=== PATIENT | female | born 1995 | race Caucasian/White ===

== ENCOUNTER 2019-07-05 20:05 | Emergency (ER) | payer SELFPAY ==
--- NOTE | 2019-07-05 21:00 | ER Document Report ---
ED Medical Screen (RME) - General Chief Complaint: Dog Bite Stated Complaint: POSSIBLE DOG BITE Time Seen by Provider: 07/05/19 20:56 Mode of Arrival: Ambulatory Information source: Patient Notes: Patient presents to the emergency department with multiple dog bites to her left forearm and the right lower leg. Reports she was breaking up a fight between dogs. Reports her roommate's dog bit her. Reports rabies shots are up-to-date. Reports her tetanus is up-to-date. I have greeted and performed a rapid initial assessment of this patient. A comprehensive ED assessment and evaluation of the patient, analysis of test results and completion of the medical decision making process will be conducted by additional ED providers. Dictation of this chart was performed using voice recognition software; therefore, there may be some unintended grammatical errors. - Related Data Allergies/Adverse Reactions: No Known Allergies Allergy (Unverified 07/05/19 20:50) Physical Exam - Vital signs Vitals: Temp Pulse Resp BP Pulse Ox 98.1 F 81 18 114/67 100 07/05/19 20:21 07/05/19 20:21 07/05/19 20:21 07/05/19 20:21 07/05/19 20:21 Course - Vital Signs Vital signs: Temp Pulse Resp BP Pulse Ox 98.1 F 81 18 114/67 100 07/05/19 20:21 07/05/19 20:21 07/05/19 20:21 07/05/19 20:21 07/05/19 20:21
--- NOTE | 2019-07-05 22:06 | RADIOLOGY REPORT (SQ) ---
EXAM DESCRIPTION: XR TIBIA FIBULA 2 VIEWS COMPLETED DATE/TME: 07/05/2019 20:59 CLINICAL HISTORY: 24 years, Female, DOG BITE, COMPARISON: None. NUMBER OF VIEWS: 4 TECHNIQUE: 4 view right tibia fibula LIMITATIONS: None. FINDINGS: Negative for fracture or dislocation. Soft tissues are unremarkable. No radiopaque foreign body IMPRESSION: Negative exam copyright 2010 [employer]- All Rights Reserved
--- NOTE | 2019-07-05 22:07 | RADIOLOGY REPORT (SQ) ---
EXAM DESCRIPTION: XR FOREARM 2 VIEWS COMPLETED DATE/TME: 07/05/2019 20:59 CLINICAL HISTORY: 24 years, Female, DOG BITE, COMPARISON: EXAM DESCRIPTION: CLINICAL HISTORY: DOG BITE, COMPARISON: None FINDINGS: 2 view(s) submitted. No fracture or dislocation is identified. Bone marrow attenuation is unremarkable. No radiopaque foreign body is identified. IMPRESSION: No acute fracture or dislocation. NUMBER OF VIEWS: TECHNIQUE: LIMITATIONS: None. FINDINGS: IMPRESSION: copyright 2010 [employer]- All Rights Reserved
[2019-07-05] MEDS ORDERED: AMOXICILLIN TR/POT CLAVULANATE 500-125 MG TAB PO ONE (22:35)
[2019-07-05] MEDS ORDERED: IBUPROFEN 800 MG TABLET PO ONE (22:35)
--- NOTE | 2019-07-05 22:35 | ER Document Report ---
ED General - General Chief Complaint: Dog Bite Stated Complaint: POSSIBLE DOG BITE Time Seen by Provider: 07/05/19 20:56 Mode of Arrival: Ambulatory Information source: Patient Notes: 24-year-old female presents emergency department with multiple dog bites to her left forearm and right lower leg. Reports that she broke up a fight between dogs. Report it was her roommates dog that bit her. Reports rabies vaccines are up-to-date. Patient reports her tetanus is up-to-date. No active bleeding. TRAVEL OUTSIDE OF THE [place] IN LAST 30 DAYS: No - HPI Onset: Just prior to arrival Onset/Duration: Sudden Quality of pain: Achy Pain Level: 3 Associated symptoms: None Exacerbated by: Denies Relieved by: Denies Similar symptoms previously: No Recently seen / treated by doctor: No - Related Data Allergies/Adverse Reactions: No Known Allergies Allergy (Unverified 07/05/19 20:50) Past Medical History - General Information source: Patient Last Menstrual Period: May - Social History Smoking Status: Current Every Day Smoker Cigarette use (# per day): Yes Chew tobacco use (# tins/day): No Frequency of alcohol use: Social Drug Abuse: None Occupation: Unemployed Family History: None Patient has suicidal ideation: No Patient has homicidal ideation: No - Medical History Medical History: Negative Surgical Hx: Negative Review of Systems - Review of Systems Notes: Review HPI for review of systems., All other systems negative Physical Exam - Vital signs Vitals: Temp Pulse Resp BP Pulse Ox 98.1 F 81 18 114/67 100 07/05/19 20:21 07/05/19 20:21 07/05/19 20:21 07/05/19 20:21 07/05/19 20:21 - General General appearance: Alert, Anxious In distress: None - HEENT Head: Normocephalic Eyes: Normal Conjunctiva: Normal Extraocular movements intact: Yes Neck: Normal, Supple - Respiratory Respiratory status: No respiratory distress Chest status: Nontender Breath sounds: Normal Chest palpation: Normal - Cardiovascular Rhythm: Regular Heart sounds: Normal auscultation Murmur: No - Abdominal Inspection: Normal Tenderness: Nontender - Extremities General upper extremity: Normal color, Normal ROM, Normal strength General lower extremity: Normal color, Normal ROM, Normal strength - Neurological Neuro grossly intact: Yes Cognition: Normal Orientation: AAOx4 [place] Coma Scale Eye Opening: Spontaneous [place] Coma Scale Verbal: Oriented [place] Coma Scale Motor: Obeys Commands [place] Coma Scale Total: 15 Speech: Normal 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 Course - Re-evaluation Re-evalutation: 07/05/19 22:25 Patient presents to the emergency department with multiple bites to her left forearm and right lower leg. Reports she broke up a fight between dogs. Reports her roommate's dog bit her. Reports his previous vaccines are up-to-date. Patient reports her tetanus is up-to-date. Wound care ordered. X-rays negative for foreign body or fracture. pt wounds cleaned extremely well with ns/shur clens and surgical scub, steri strips placed on some bites. Pt instructed on s/s infection and medication. she was instructed to return to the ED for any s/s infection or concerns. she verbalized understanding to all information Forearm X-Ray 07/05/19 20:59 IMPRESSION: No acute fracture or dislocation. NUMBER OF VIEWS: TECHNIQUE: LIMITATIONS: None. FINDINGS: IMPRESSION: copyright 2010 [employer]- All Rights Reserved Tibia/Fibula X-Ray 07/05/19 20:59 IMPRESSION: Negative exam copyright 2010 [employer]- All Rights Reserved 07/05/19 22:42 07/06/19 02:19 - Vital Signs Vital signs: Temp Pulse Resp BP Pulse Ox 98.9 F 78 18 110/74 98 07/05/19 23:25 07/05/19 23:25 07/05/19 20:21 07/05/19 23:25 07/05/19 23:25 - Diagnostic Test Radiology reviewed: Image reviewed, Reports reviewed Discharge - Discharge Clinical Impression: dog bites forearm and lower leg Condition: Stable Disposition: HOME, SELF-CARE Instructions: Animal Bites ([facility]), Augmentin ([facility]) Additional Instructions: *You have been treated for multiple dog bites *Take medication as prescribed *Monitor your skin for signs of infection such as increasing pain, redness, swelling, warmth *Keep the area's clean *Follow up with a primary care provider within one week *Return to ED for signs of infection, worsening condition, changes, needs Prescriptions: Amox Tr/Potassium Clavulanate [Augmentin 875-125 mg Tablet] 1 tab PO BID #20 tablet
[2019-07-05 23:26] VITALS: BP 110/74
== END 2019-07-05 23:25 | disposition home or self-care (01) ==
LOC: ER 20:05
DX: S51.852A Open bite of left forearm, initial encounter (principal); S81.851A Open bite, right lower leg, initial encounter; W54.0XXA Bitten by dog, initial encounter; F17.210 Nicotine dependence, cigarettes, uncomplicated
CPT/HCPCS: 99283